=== PATIENT | male | born 1990 | race Caucasian/White ===

== ENCOUNTER 2019-12-29 20:01 | Inpatient (IN) | payer MEDICAID ==
[~2019-12-29] VITALS: Ht 177.8 cm; Wt 88.5 kg
[2019-12-30] MEDS ORDERED: LORazepam 1 MG TABLET PO PRN (00:45)
[2019-12-30] MEDS ORDERED: ZOLPIDEM TARTRATE 10 MG TABLET PO PRN (00:45)
[2019-12-30] MEDS ORDERED: INFLUENZA VIRUS VACCINE QVS 2019-20 (3YR+)/PF 60 MCG/0.5 ML SYRINGE IM ONE (03:30)
[2019-12-30 03:33] VITALS: BP 132/76
[2019-12-30 08:13] VITALS: BP 110/72
[2019-12-30] MEDS ORDERED: ALBUTEROL SULFATE HFA 90 MCG/PUFF 8 GM INHALER IH PRN (12:30)
[2019-12-30] MEDS ORDERED: GuaiFENesin/D-METHORPHAN [SUGAR-FREE] 200-20MG/10 ML SYRUP UDCUP PO PRN (12:30)
[2019-12-30] MEDS ORDERED: LOPERAMIDE HCL 2 MG CAPSULE PO PRN (12:30)
[2019-12-30] MEDS ORDERED: IBUPROFEN 400 MG TABLET PO PRN (12:30)
[2019-12-30] MEDS ORDERED: DOCUSATE SODIUM 100 MG CAPSULE PO PRN (12:30)
[2019-12-30] MEDS ORDERED: MAG HYDROX/AL HYDROX/SIMETH ES 30 ML SUSPENSION UDCUP PO PRN (12:30)
[2019-12-30] MEDS ORDERED: CloNIDine HCL 0.1 MG TABLET PO PRN (12:30)
[2019-12-30] MEDS ORDERED: PETROLATUM,WHITE 28 GM JELLY TP PRN (12:30)
[2019-12-30] MEDS ORDERED: MAGNESIUM HYDROXIDE SUSPENSION 30 ML UDCUP PO PRN (12:30)
[2019-12-30] MEDS ORDERED: ACETAMINOPHEN 325 MG TABLET PO PRN (12:30)
[2019-12-30] MEDS ORDERED: NICOTINE 14 MG/24 HOUR PATCH TD PRN (12:30)
[2019-12-30] MEDS ORDERED: ONDANSETRON HCL 4 MG TABLET PO PRN (12:30)
[2019-12-30 17:04] VITALS: BP 121/69
[2019-12-30] MEDS: HALOPERIDOL 5 MG TABLET PO PRN (18:28)
[2019-12-31 05:43] VITALS: BP 125/73
[2019-12-31 07:35] LABS: BASOPHILS % (AUTO) 0.8 % (0.0-2.0); EOSINOPHILS % (AUTO) 7.2 % (1.0-6.0); HEMOGLOBIN 15.8 g/dL (13.5-17.5); LYMPHOCYTES # (AUTO) 1.6 K/uL (1.0-4.8); LYMPHOCYTES % (AUTO) 34.2 % (22.0-44.0); MEAN CORPUSCULAR HGB CONC 34.3 G/dL (31.0-37.0); MEAN CORPUSCULAR VOLUME 91 fL (80-100); MONOCYTES # (AUTO) 0.6 K/uL (0.1-1.0); MONOCYTES % (AUTO) 13.5 % (2.0-9.0); NEUTROPHILS # (AUTO) 2.1 K/uL (1.8-7.7); NEUTROPHILS % (AUTO) 44.3 % (40.0-70.0); PLATELET COUNT (AUTO) 237 K/uL (150-450); RED BLOOD CELL COUNT(AUTO) 5.08 MIL/uL (4.50-5.90)
[2019-12-31 07:48] LABS: HEMOGLOBIN A1C 5.5 % (3.8-5.6)
[2019-12-31 08:05] LABS: ALANINE AMINOTRANSFERASE 42 U/L (12-78); ALKALINE PHOSPHATASE 44 U/L (46-116); ANION GAP 9 mmol/L (8-16); ASPARTATE AMINOTRANSFERASE 31 U/L (15-37); BILIRUBIN,TOTAL 1.9 mg/dL (0.1-1.0); CALCIUM, TOTAL 8.9 mg/dL (8.8-10.5); CARBON DIOXIDE 27 mmol/L (22-29); CHLORIDE 104 mmol/L (98-107); CHOLESTEROL 139 mg/dL (131-200); CREATININE 0.79 mg/dL (0.60-1.30); GLOMERULAR FILTR. RATE CALC > 60 mL/min (>60); GLUCOSE,RANDOM 88 mg/dL (70-110); HDL CHOLESTEROL 47 mg/dL (40-60); LDL CHOL (CALC.) 85 mg/dL (0-130); POTASSIUM 3.8 mmol/L (3.5-5.1); SODIUM SERUM 140 mmol/L (136-145); TOTAL PROTEIN, SERUM 7.1 g/dL (6.4-8.2); TRIGLYCERIDES 33 mg/dL (15-150); UREA NITROGEN, BLOOD 10 mg/dL (7-18)
[2019-12-31 08:24] VITALS: BP 110/76
[2019-12-31] MEDS: OLANZapine 5 MG TABLET PO SCH ×2 (12:37→16:48)
[2019-12-31 16:22] VITALS: BP 108/63
[2020-01-01 05:37] VITALS: BP 121/71
[2020-01-01] MEDS: OLANZapine 5 MG TABLET PO SCH ×2 (08:12→16:31)
[2020-01-01 08:45] VITALS: BP 148/84
[2020-01-01 16:17] VITALS: BP 101/63
[2020-01-02 05:38] VITALS: BP 131/79
[2020-01-02 08:25] VITALS: BP 110/60
[2020-01-02] MEDS: OLANZapine 5 MG TABLET PO SCH ×2 (08:45→17:33)
[2020-01-02 16:09] VITALS: BP 113/61
[2020-01-02] MEDS: HALOPERIDOL 5 MG TABLET PO PRN (17:33)
[2020-01-02] MEDS ORDERED: OLAN5TAB2 PO (19:22)
[2020-01-03 05:49] VITALS: BP 139/67
[2020-01-03] MEDS: OLANZapine 5 MG TABLET PO SCH ×2 (08:25→16:18)
[2020-01-03 08:27] VITALS: BP 115/68
[2020-01-03 16:16] VITALS: BP 115/68
[2020-01-04 06:28] VITALS: BP 116/67
[2020-01-04 08:37] VITALS: BP 97/64
[2020-01-04] MEDS: OLANZapine 5 MG TABLET PO SCH ×2 (08:52→17:02)
[2020-01-04 16:15] VITALS: BP 106/63
[2020-01-05 04:29] VITALS: BP 110/65
[2020-01-05] MEDS: OLANZapine 5 MG TABLET PO SCH ×2 (09:39→16:15)
[2020-01-05 12:56] VITALS: BP 106/64
[2020-01-05 16:09] VITALS: BP 127/74
[2020-01-06 03:46] VITALS: BP 115/61
[2020-01-06 08:41] VITALS: BP 102/61
[2020-01-06] MEDS: OLANZapine 5 MG TABLET PO SCH (08:53)
== END 2020-01-06 13:10 | disposition home or self-care (01) | DRG 751 ==
LOC: B3A 12-30 01:26
PROVIDERS: ADMIT Psychiatry & Neurology Psychiatry; ATTEND Psychiatry & Neurology Psychiatry
DX: F29 Unspecified psychosis not due to a substance or known physiological condition (principal); F42.9 Obsessive-compulsive disorder, unspecified; G44.209 Tension-type headache, unspecified, not intractable; Z59.0 Homelessness
CPT/HCPCS: 83036; 84439; 84443

== ENCOUNTER 2022-03-20 12:25 | Emergency (ER) | payer MEDICAID ==
[~2022-03-20] VITALS: Ht 177.8 cm; Wt 84.1 kg
[~2022-03-20 12:25] MED LIST: OLAN5TAB52 PO
[2022-03-20] MEDS ORDERED: OLANZapine 5 MG TABLET PO ONE (13:30)
[2022-03-20 13:52] LABS: BASOPHILS % (AUTO) 0.8 % (0.0-2.0); EOSINOPHILS % (AUTO) 1.8 % (1.0-6.0); HEMATOCRIT 39.5 % (41-53); HEMOGLOBIN 13.9 g/dL (13.5-17.5); LYMPHOCYTES % (AUTO) 18.1 % (22.0-44.0); MEAN CORPUSCULAR HEMOGLOBIN 30.4 pg (26.0-34.0); MEAN CORPUSCULAR HGB CONC 35.1 G/dL (31.0-37.0); MEAN CORPUSCULAR VOLUME 87 fL (80-100); MONOCYTES # (AUTO) 0.5 K/uL (0.1-1.0); NEUTROPHILS # (AUTO) 4.1 K/uL (1.8-7.7); NEUTROPHILS % (AUTO) 71.3 % (40.0-70.0); PLATELET COUNT (AUTO) 260 K/uL (150-450); RED BLOOD CELL COUNT(AUTO) 4.57 MIL/uL (4.50-5.90); RED CELL DISTRIBUTION WIDTH 12.9 % (11.5-14.5)
[2022-03-20 14:03] LABS: ANION GAP 12 mmol/L (8-16); CALCIUM, TOTAL 8.9 mg/dL (8.8-10.5); CARBON DIOXIDE 24 mmol/L (22-29); CHLORIDE 102 mmol/L (98-107); CREATININE 0.93 mg/dL (0.60-1.30); GLOMERULAR FILTR. RATE CALC > 60 mL/min (>60); GLUCOSE,RANDOM 152 mg/dL (70-110); POTASSIUM 3.3 mmol/L (3.5-5.1); SODIUM SERUM 138 mmol/L (136-145); UREA NITROGEN, BLOOD 10 mg/dL (7-18)
[2022-03-20 14:08] LABS: ALANINE AMINOTRANSFERASE 36 U/L (12-78); ALBUMIN 4.2 g/dL (3.4-5.0); ALKALINE PHOSPHATASE 55 U/L (46-116); ASPARTATE AMINOTRANSFERASE 20 U/L (15-37); BILIRUBIN,TOTAL 1.7 mg/dL (0.1-1.0); TOTAL PROTEIN, SERUM 7.4 g/dL (6.4-8.2)
[2022-03-20 14:36] LABS: AMPHET/METH SCREEN,URINE NEGATIVE (NEGATIVE); BARBITURATE SCREEN, URINE NEGATIVE (NEGATIVE); BENZODIAZEPINES SCREEN,URINE NEGATIVE (NEGATIVE); CANNABINOID SCREEN,URINE NEGATIVE (NEGATIVE); COCAINE SCREEN,URINE NEGATIVE (NEGATIVE); METHADONE SCREEN, URINE NEGATIVE (NEGATIVE); OPIATE SCREEN,URINE NEGATIVE (NEGATIVE); PHENCYCLIDINE SCREEN,URINE NEGATIVE (NEGATIVE)
[2022-03-20 15:04] VITALS: BP 119/69
== END 2022-03-20 15:28 | disposition home or self-care (01) ==
LOC: EMS 12:28
DX: F25.9 Schizoaffective disorder, unspecified (principal); E80.4 Gilbert syndrome; Z91.018 Allergy to other foods
CPT/HCPCS: 36415; 80053; 80307; 85025; 99284; G0480